=== PATIENT | female | born 1955 | race Caucasian/White ===

== ENCOUNTER 2020-08-18 16:30 | Emergency (ER) | payer OTHER ==
[~2020-08-18 16:30] MED LIST: DOXYCYCLINE MO100 M1 PO; DUONEB 2.5-0.5M1 AMP INH; ELAVIL50 MG PO; ELIQUIS5 MG PO; HABITROL7 MG TD; HYDROCODON-ACE1 EAC2 PO; JANUMET PO; JANUVIA50 MG PO; KEPPRA1000 MG PO; LACTINEX1 EACH PO; LEVAQUIN500 MG PO; LEVAQUIN750 MG PO; LEXAPRO 10MG TA10 MG PO; LIPITOR40 MG PO; NEURONTIN100 MG PO; NORCO 5-325 TA1 EAC1 PO; NORCO 5-325 TA1 EACH PO; NORVASC5 MG PO; NYSTATIN SUSP1 ML/ML SSW; PLAVIX75 MG PO; PREDNISONE 10MG10 MG PO; PREDNISONE20 MG PO; PRINIVIL20 MG PO; PROTONIX 40MG T40 MG PO; RISPERDAL 1MG TA1 MG PO; SANTYL15 GM TOP; TOPROL XL100 MG PO; VENTOLIN (2.5 MG/3 M INH; VENTOLIN HFA IN18 GM INH; VIBRAMYCIN100 MG PO
[2020-08-18 18:13] LABS: BASOPHIL 0.1 % (0-2); BILIRUBIN NEGATIVE (NEGATIVE); BLOOD NEGATIVE Ery/uL (NEGATIVE); CLARITY CLEAR (CLEAR); COLOR YELLOW (YELLOW); EOSINOPHIL 0.8 % (0-7); GLUCOSE (U) NORMAL (NORMAL); HCT 42.1 % (37.0-47.0); HGB 13.4 g/dl (12.5-16.0); LEUKOCYTES NEGATIVE Leu/uL (NEGATIVE); LYMPHOCYTE 14.4 % (15-48); MCH 27.3 pg (25.0-31.0); MCHC 31.8 g/dL (32.0-36.0); MCV 85.7 fL (78.0-100.0); MONOCYTE 6.7 % (0-12); MPV 9.9 fL (6.0-9.5); NEUTROPHIL 77.6 % (41-80); NITRITE NEGATIVE (NEGATIVE); NRBC 0; PLT 246 K/uL (150-400); PROTEIN NEGATIVE (NEGATIVE); RBC 4.91 M/uL (4.20-5.40); RDW 13.9 % (11.5-14.0); UROBILINOGEN 0.2 mg/dL (0.2-1.0); WBC 7.7 K/uL (4.0-10.5); pH 5.5 (5.0-9.0)
[2020-08-18 18:46] LABS: ALBUMIN 3.4 g/dL (3.4-5.0); BILIRUBIN - TOTAL 0.4 mg/dL (0.2-1.0); BUN/CREAT RATIO (CALC) 10.3 RATIO; CREATININE 0.58 mg/dL (0.51-0.95); GLOBULIN (CALCULATION) 3.7 g/dL; POTASSIUM 3.9 mmol/L (3.5-5.1); TOTAL PROTEIN 7.1 g/dL (6.4-8.2)
[2020-08-18] MEDS ORDERED: AZITHROMYCIN250 MG PO (21:21)
[2020-09-07] MEDS ORDERED: HYDROCODON-ACE1 EAC2 PO (16:35)
[2020-11-03] MEDS ORDERED: HYDROCODON-ACE1 EAC2 PO (11:18)
[2021-01-05] MEDS ORDERED: HYDROCODON-ACE1 EAC2 PO (11:27)
== END 2020-08-18 23:10 | disposition home or self-care (01) ==
LOC: FER 16:30
PROVIDERS: Nurse Practitioner Family
DX: U07.1 COVID-19 (principal); I10 Essential (primary) hypertension; E11.9 Type 2 diabetes mellitus without complications; I48.91 Unspecified atrial fibrillation; J44.9 Chronic obstructive pulmonary disease, unspecified; F17.210 Nicotine dependence, cigarettes, uncomplicated; Z99.81 Dependence on supplemental oxygen; Z88.0 Allergy status to penicillin; Z88.6 Allergy status to analgesic agent; Z88.5 Allergy status to narcotic agent
CPT/HCPCS: 36415; 71046; 80053; 81003; 82728; 83605; 84145; 85025; 85379; J1100; J7050; M0239; U0002

== ENCOUNTER 2021-08-02 15:16 | Day surgery (SDCO) | payer OTHER ==
[~2021-08-02] VITALS: Ht 162.6 cm; Wt 93.6 kg
[~2021-08-02 15:16] MED LIST changes: +AZITHROMYCIN250 MG PO
[2021-08-02 17:30] LABS: BILIRUBIN NEGATIVE (NEGATIVE); BLOOD NEGATIVE Ery/uL (NEGATIVE); CLARITY CLEAR (CLEAR); COLOR YELLOW (YELLOW); GLUCOSE (U) NORMAL (NORMAL); LEUKOCYTES NEGATIVE Leu/uL (NEGATIVE); NITRITE NEGATIVE (NEGATIVE); PROTEIN NEGATIVE (NEGATIVE); SPECIFIC GRAVITY 1.015 (1.001-1.030); UROBILINOGEN 0.2 mg/dL (0.2-1.0); pH 5.5 (5.0-9.0)
[2021-08-02 17:31] LABS: BASOPHIL 0.1 % (0-2); EOSINOPHIL 0.5 % (0-7); HCT 37.6 % (37.0-47.0); HGB 12.5 g/dl (12.5-16.0); LYMPHOCYTE 16.1 % (15-48); MCH 28.8 pg (25.0-31.0); MCHC 33.2 g/dL (32.0-36.0); MCV 86.6 fL (78.0-100.0); MONOCYTE 11.1 % (0-12); MPV 10.3 fL (6.0-9.5); NEUTROPHIL 71.9 % (41-80); NRBC 0; PLT 269 K/uL (150-400); RBC 4.34 M/uL (4.20-5.40); RDW 13.6 % (11.5-14.0); WBC 7.8 K/uL (4.0-10.5)
[2021-08-02 17:51] LABS: BUN/CREAT RATIO (CALC) 29.3 RATIO; CREATININE 0.75 mg/dL (0.51-0.95); POTASSIUM 4.5 mmol/L (3.5-5.1)
[2021-08-02 18:18] LABS: CORONAVIRUS 2019 SARS-COV-2 NEGATIVE (NEGATIVE); INFLUENZA A NAA NEGATIVE (NEGATIVE)
[2021-08-03 08:10] LABS: BASOPHIL 0.3 % (0-2); EOSINOPHIL 0 % (0-7); HCT 37.2 % (37.0-47.0); HGB 12.1 g/dl (12.5-16.0); LYMPHOCYTE 12.6 % (15-48); MCH 28.5 pg (25.0-31.0); MCHC 32.5 g/dL (32.0-36.0); MCV 87.5 fL (78.0-100.0); MONOCYTE 2.5 % (0-12); MPV 9.9 fL (6.0-9.5); NEUTROPHIL 84.1 % (41-80); NRBC 0; PLT 229 K/uL (150-400); RBC 4.25 M/uL (4.20-5.40); RDW 13.6 % (11.5-14.0)
[2021-08-03 08:42] LABS: BUN/CREAT RATIO (CALC) 25.4 RATIO; CREATININE 0.71 mg/dL (0.51-0.95); POTASSIUM 4.1 mmol/L (3.5-5.1)
[2021-08-04 06:39] LABS: BASOPHIL 0.1 % (0-2); EOSINOPHIL 0 % (0-7); HCT 35.1 % (37.0-47.0); HGB 11.1 g/dl (12.5-16.0); LYMPHOCYTE 6.7 % (15-48); MCHC 31.6 g/dL (32.0-36.0); MCV 88.4 fL (78.0-100.0); MONOCYTE 3.1 % (0-12); MPV 10.2 fL (6.0-9.5); NEUTROPHIL 89.4 % (41-80); NRBC 0; PLT 218 K/uL (150-400); RBC 3.97 M/uL (4.20-5.40); RDW 13.3 % (11.5-14.0)
[2021-08-04 06:56] LABS: WBC 10.3 K/uL (4.0-10.5)
[2021-08-04 07:10] LABS: BUN/CREAT RATIO (CALC) 28.2 RATIO; CREATININE 0.71 mg/dL (0.51-0.95); POTASSIUM 4.3 mmol/L (3.5-5.1)
[2021-08-04] MEDS ORDERED: XARELTO10 MG PO (11:02)
[2021-08-04] MEDS ORDERED: VIBRAMYCIN100 MG PO (12:53)
[2021-08-04] MEDS ORDERED: CEFDINIR300 MG PO (12:53)
[2021-08-04] MEDS ORDERED: PREDNISONE 20MG20 MG PO (12:54)
--- NOTE | 2021-08-05 09:58 | NUR ---
Ms. Crane lives with her sister, [id number] and theit son. She has 02 at 1, cane, and . _ areferral was made to [facility] per patient choice.
== END 2021-08-04 16:03 | disposition home or self-care (01) ==
LOC: FER 15:16 → FMS 08-03 01:06
PROVIDERS: Allergy & Immunology Allergy; Hospitalist; Nurse Practitioner Family; ADMIT Internal Medicine
DX: J18.8 Other pneumonia, unspecified organism (principal); J44.1 Chronic obstructive pulmonary disease with (acute) exacerbation; E11.9 Type 2 diabetes mellitus without complications; I10 Essential (primary) hypertension; R07.89 Other chest pain; I25.10 Atherosclerotic heart disease of native coronary artery without angina pectoris; F17.200 Nicotine dependence, unspecified, uncomplicated; I48.0 Paroxysmal atrial fibrillation; E78.00 Pure hypercholesterolemia, unspecified; G40.909 Epilepsy, unspecified, not intractable, without status epilepticus; K21.9 Gastro-esophageal reflux disease without esophagitis; Z99.81 Dependence on supplemental oxygen; Z20.822 Contact with and (suspected) exposure to COVID-19; Z79.02 Long term (current) use of antithrombotics/antiplatelets; Z90.49 Acquired absence of other specified parts of digestive tract; Z98.51 Tubal ligation status; Z88.0 Allergy status to penicillin; Z88.6 Allergy status to analgesic agent; Z88.5 Allergy status to narcotic agent; Z88.8 Allergy status to other drugs, medicaments and biological substances; Z79.01 Long term (current) use of anticoagulants
CPT/HCPCS: 36415; 36600; 71045; 80048; 81003; 82803; 83605; 83880; 84145; 84484; 85025; 87040; 93005; 94010; 94640; 94664; G0378; J1100; J1940; J1956; J2060; J2930; J3370; J7030; J7050; U0002

== ENCOUNTER 2021-12-23 15:41 | Emergency (ER) | payer OTHER ==
[~2021-12-23 15:41] MED LIST changes: +CEFDINIR300 MG PO; +GABAPENTIN600 MG PO; +NEURONTIN300 MG PO; +PREDNISONE 20MG20 MG PO; +XARELTO10 MG PO
[2021-12-23 16:17] LABS: BASOPHIL 0.1 % (0-2); EOSINOPHIL 0.5 % (0-7); HCT 39.5 % (37.0-47.0); HGB 13.1 g/dl (12.5-16.0); MCH 28.2 pg (25.0-31.0); MCHC 33.2 g/dL (32.0-36.0); MCV 85.1 fL (78.0-100.0); MONOCYTE 6.2 % (0-12); MPV 10.2 fL (6.0-9.5); NEUTROPHIL 82.7 % (41-80); NRBC 0; PLT 336 K/uL (150-400); RBC 4.64 M/uL (4.20-5.40); RDW 12.7 % (11.5-14.0); WBC 14.7 K/uL (4.0-10.5)
[2021-12-23 16:22] LABS: INR 1.09 (0.9-1.2); PROTHROMBIN TIME 13.5 SECONDS (11.8-13.4); PTT 25.5 SECONDS (24.4-34.7)
[2021-12-23 16:23] LABS: ALBUMIN 3.3 g/dL (3.4-5.0); BILIRUBIN - TOTAL 0.4 mg/dL (0.2-1.0); BUN/CREAT RATIO (CALC) 21.9 RATIO; CREATININE 0.64 mg/dL (0.51-0.95); GLOBULIN (CALCULATION) 3.6 g/dL; POTASSIUM 4.2 mmol/L (3.5-5.1); TOTAL PROTEIN 6.9 g/dL (6.4-8.2)
== END 2021-12-23 17:45 | disposition other institution (70) ==
LOC: FER 15:41
PROVIDERS: Emergency Medicine
DX: S41.041A Puncture wound with foreign body of right shoulder, initial encounter (principal); S21.241A Puncture wound with foreign body of right back wall of thorax without penetration into thoracic cavity, initial encounter; J44.9 Chronic obstructive pulmonary disease, unspecified; E11.9 Type 2 diabetes mellitus without complications; Z28.310 Unvaccinated for COVID-19; Z23 Encounter for immunization; Z88.0 Allergy status to penicillin; Z88.5 Allergy status to narcotic agent; Z88.6 Allergy status to analgesic agent; Z88.8 Allergy status to other drugs, medicaments and biological substances; W33.01XA Accidental discharge of shotgun, initial encounter; Y92.009 Unspecified place in unspecified non-institutional (private) residence as the place of occurrence of the external cause
CPT/HCPCS: 36415; 71045; 71260; 73020; 80053; 85025; 85610; 85730; 90471; 90715; J2270; J2405; J3370; J7050